=== PATIENT | male | born 1945 | race Two or more races ===

== ENCOUNTER 2021-05-14 08:06 | Emergency (ER) | payer MEDICARE, MEDICAID ==
[~2021-05-14] VITALS: Ht 162.6 cm; Wt 76.2 kg
--- NOTE | 2021-05-14 08:32 | NUR ---
ER BED 1, C/O COUGH OUT BLOOD STREAK MUCUS, PATIENT ALERT, NO COMPLAIN OF PAIN, BREATHING NORMAL AND UNLABORED. MD AT BEDSIDE
--- NOTE | 2021-05-14 08:34 | NUR ---
ORDERED CHEST XRAY
[2021-05-14] MEDS ORDERED: AMLO5TAB4 PO (08:37)
[2021-05-14] MEDS ORDERED: OLME1TAB19 PO (08:37)
[2021-05-14] MEDS ORDERED: LOSA1TAB15 PO (08:37)
[2021-05-14] MEDS ORDERED: APIX2.5T PO (08:37)
[2021-05-14] MEDS ORDERED: FINA1TAB11 PO (08:37)
[2021-05-14] MEDS ORDERED: MYRBETRIQ PO (09:04)
[2021-05-14 09:32] VITALS: BP 142/90
== END 2021-05-14 09:34 | disposition home or self-care (01) ==
LOC: ER 08:09
DX: R04.0 Epistaxis (principal); I10 Essential (primary) hypertension; E11.9 Type 2 diabetes mellitus without complications; Z93.0 Tracheostomy status; Z79.899 Other long term (current) drug therapy
CPT/HCPCS: 70360-TC; 71045-TC